=== PATIENT | male | born 1945 | race Caucasian/White ===

== ENCOUNTER 2018-01-24 10:03 | Outpatient (CLI) | payer OTHER ==
--- NOTE | 2018-01-24 11:11 | DI ---
Exam: Three x-rays of the chest. Comparison: 04/08/2015. Reason for exam: Chronic obstructive pulmonary disease. FINDINGS: No pneumothorax, pleural effusion, or focal consolidation. The cardiac silhouette is not enlarged. The imaged osseous structures appear grossly unremarkable without acute fracture. Impression: No acute cardiopulmonary process.
== END 2018-01-24 10:04 | disposition home or self-care (01) ==
LOC: RAD 10:03
PROVIDERS: ATTEND Emergency Medicine
DX: J06.9 Acute upper respiratory infection, unspecified (principal); J44.9 Chronic obstructive pulmonary disease, unspecified

== ENCOUNTER 2018-09-03 08:47 | Outpatient (CLI) ==
--- NOTE | 2018-09-03 09:51 | CT ---
EXAM: CT chest without contrast. HISTORY: Tobacco use. Cough. COMPARISON: Radiograph 01/24/2018, 04/08/2015. TECHNIQUE: Multiple axial images of the chest were obtained without intravenous contrast. Images we re reformatted in the sagittal and coronal planes. FINDINGS: Evaluation for lymphadenopathy is limited by lack of intravenous contrast. Nonenlarged me diastinal lymph nodes are pes. Calcified left hilar lymph nodes present. Heart size is normal. Atherosclerotic calcifications noted. No pericardial effusion identified. Severe emphysematous changes present, predominately centrilobular. Left apical nodular opacity measu res approximately 0.5 cm on axial image 11 with adjacent linear opacities. Possibly calcified 0.3 cm left upper lobe nodule on axial image 20 noted. Noncalcified 0.5 cm right upper lobe nodule on axia l image 20 with additional right upper lobe 0.4 cm nodule on axial image 29. A 0.5 cm right lower lo be nodule noted on axial image 37. A few smaller nodules are present. No pleural effusion or pneumo thorax identified. Probable mucus in the lower trachea/right main bronchus on axial images 20-26 Limited images of the upper abdomen demonstrate left nephrolithiasis and probable small left renal cy st measuring up to 2 cm diameter on axial image 61. Cholelithiasis also noted. No acute osseous abn ormality is identified. IMPRESSION: 1. Severe emphysema. 2. Bilateral micronodules measuring up to 0.5 cm. Follow-up CT in 6 months recommended for reassess ment. 3. Evidence of prior granulomatous disease. 4. Cholelithiasis and left nephrolithiasis. Probable left renal cyst.
== END 2018-09-03 08:48 | disposition home or self-care (01) ==
LOC: RAD 08:47
PROVIDERS: ATTEND Nurse Practitioner Family
DX: J44.1 Chronic obstructive pulmonary disease with (acute) exacerbation (principal); Z72.0 Tobacco use

== ENCOUNTER 2019-01-07 11:51 | Outpatient (CLI) | payer OTHER | END 2019-01-07 11:52 | disposition home or self-care (01) | LOC: RHC-LAB 11:51 | PROVIDERS: ATTEND Nurse Practitioner Family | DX: R05 Cough (principal) | CPT/HCPCS: 87502; 87651 ==